=== PATIENT | female | born 1980 | race Caucasian/White ===

== ENCOUNTER 2019-09-20 02:09 | Observation (INO) | payer MEDICAID, SELFPAY ==
[2019-09-20 02:13] VITALS: BP 94/71; PULSE 82; RESP 18; TEMP 36.6; O2SAT 100; BMI 30.2
--- NOTE | 2019-09-20 02:17 | ECG_ITS ---
Measurements Intervals [place] Rate: 75 P: 51 VT: 146 QRS: 73 QRSD: 94 T: 59 QT: 386 QTc: 433 SINUS RHYTHM No previous ECG available for comparison Electronically Signed On 09-20-2019 20:56:22 CDT by Miley Latham M.D. [id number]
--- NOTE | 2019-09-20 02:26 | W.ED.PSYCH ---
HPI - Psych General: Chief Complaint: Psychiatric Symptoms Stated Complaint: SI Time Seen by Provider: 09/20/19 02:13 History of Present Illness: HPI Narrative: Lupe is a 39-year-old female who comes in with the complaint of having suicidal ideation. She states that the man that she is living with has recently left her. She has been mixing gabapentin and alcohol throughout the day. She denies any other ingestions. Currently she states she needs to get help and is here for that reason. Patient is otherwise poor historian secondary to her intoxication. Review of Systems General: Reports: ROS unobtainable due to medical condition PFSH ED PFSH: Social History Smoking and tobacco status: current every day smoker Current gender identity: Female Physical Exam Const: COMMON NORMALS: no acute distress, patient oriented x3, no limitations, healthy appearing and well nourished GENERAL APPEARANCE: cooperative, well kempt and well developed HENMT: COMMON NORMALS: normocephalic, atraumatic, hearing grossly normal bilaterally, external ears normal, EAC's normal, Normal external nose present and moist oral mucous membranes HEAD & SCALP: normocephalic and atraumatic NOSE: Normal external nose present and Normal nares present EXTERNAL EAR: Yes external ears normal EXTERNAL AUDITORY CANAL: EAC's normal MOUTH: Normal oral and palatal mucosa present, lip normal and tongue normal Eye: COMMON NORMALS: Equal, round and reactive pupils present, EOMs intact bilaterally, conjunctivae normal and no scleral icterus GENERAL EYE: appearance normal, both eyes and all related structures ALIGNMENT: Yes alignment normal PERIORBITAL: periorbital findings normal EYELID: eyelids normal CONJUNCTIVA: Yes conjunctivae normal SCLERA: sclerae normal PUPIL: Yes Equal, round and reactive pupils present Neck/C-Spine: COMMON NORMALS: full ROM, no lymphadenopathy, supple, no meningeal signs and no JVD GENERAL: Yes normal visual inspection and Yes trachea midline Chest: COMMONS NORMALS: normal inspection of the chest and normal palpation of entire chest wall Resp: COMMON NORMALS: normal respiratory effort, No retractions, No use of accessory muscles and clear to auscultation bilaterally EFFORT & INSPECTION: Yes able to speak in complete sentences and Yes symmetric chest movement AUSCULTATION: clear to auscultation bilaterally, no crackles, no rales, no rhonchi and no wheezes Cardio: COMMON NORMALS: no JVD, regular rate, regular rhythm, S1 normal heart sound present, S2 normal heart sound present, No gallops present (Cardio), No clicks present (Cardio), No murmurs present (Cardio) and No rub (Cardio) RATE: regular rate RHYTHM: regular rhythm HEART SOUNDS: S1 normal heart sound present and S2 normal heart sound present GI: COMMON NORMALS: Soft to palpation and No hepatosplenomegaly present PALPATION: Yes Soft to palpation, No Tenderness to palpation present (GI), No Guarding due to palpation present (GI), No Rigid due to palpation, Yes No hepatosplenomegaly present, No Hernia present, No Palpable mass present and No Pulsatile mass present : COMMON NORMALS: Yes no CVA tenderness BLADDER/KIDNEY EXAM: Yes no CVA tenderness EXTERNAL FEMALE EXAM: No Hernia present Back/Pelvis: COMMON NORMALS: no CVA tenderness, thoracic and lumbar spine normal to inspection, no thoracic nor lumbar tenderness and thoraco-lumbar ROM normal Extremity: COMMON NORMALS: normal to inspection, full ROM, capillary refill normal, no joint enlargement, no clubbing, cyanosis or edema and no calf tenderness Neuro: COMMON NORMALS: patient oriented x3, CN's II-XII intact bilaterally, moves all extremities, no focal motor deficits and no sensory deficits noted MENINGEAL SIGNS: Yes no meningeal signs SPEECH: speech normal Psych: COMMON NORMALS: mental status grossly normal, Normal thought process present and cooperative APPEARANCE: Yes well kempt ACTIVITY/MOTOR BEHAVIOR: Yes Avoids eye contact (attititude/behavior) MOOD & AFFECT: Yes tearful THOUGHT PROCESS: Normal thought process present Skin: COMMON NORMALS: no rashes or lesions noted, turgor normal, no jaundice, no petechiae and no mottling GENERAL SKIN EXAM: no rashes or lesions noted and turgor normal MDM - Psych MDM Narrative: Medical decision making narrative: The case was reviewed with poison control. They state that gabapentin is tolerated and very high doses and they have a peak effect and 2 hours. They recommend watching here at least 2 hours but if the patient is hemodynamically stable they feel that she could be safely transferred to our psychiatric unit. I reviewed the case with Dr. Magana who is in agreement to do so. He will accept the patient in transfer. At this time she is a voluntary admission. Lab Data: Labs: Lab Results 09/20/19 09/20/19 09/20/19 Range/Units 02:38 02:38 02:38 WBC 6.3 (4.0-10.0) 10^3/ uL RBC 3.90 L (4.1-5.3) 10^6/u L Hgb 12.7 (11.5-15.3) g/dL Hct 38.2 (37.0-47.0) % MCV 97.9 (81-99) fL MCH 32.6 (28.0-34.0) pg MCHC 33.2 (30.0-36.0) g/dL RDW 12.9 (12.1-15.1) % Plt Count 264 (130-400) 10^3/c mm MPV 11.4 H (7.4-10.4) fL Neut % (Auto) 50.5 % Lymph % (Auto) 40.4 % Beaver % (Auto) 4.9 % Eos % (Auto) 3.5 % Baso % (Auto) 0.5 % Neut # (Auto) 3.2 (1.8-7.7) 10^3/u L Lymph # (Auto) 2.5 (0.8-4.8) 10^3/u L Beaver # (Auto) 0.3 (0.2-0.9) 10^3/u L Eos # (Auto) 0.2 (0.0-0.8) 10^3/u L Baso # (Auto) 0.0 (0.0-0.1) 10^3/u L Nucleated RBC % (a uto) 0 % Nucleated RBCs # 0.0 /100WBC PT 12.30 (10.5-13.3) SECO NDS INR 0.89 (0.8-1.2) Sodium 139 (136-145) mmol/L Potassium 3.5 (3.5-5.1) mmol/L Chloride 100 (98-107) mmol/L Carbon Dioxide 28 (22-29) mmol/L Anion Gap 14.5 (5-19) BUN 8 (6-20) mg/dL Creatinine 0.5 (0.5-0.9) mg/dL GFR Calculation 138.8 H (90-130) mL/min Glucose 105 (65-115) mg/dL Calculated Osmolal ity 284 L (285-295) mOsm/k g Calcium 9.2 (8.5-10.5) mg/dL Magnesium 1.7 (1.7-2.3) mg/dL Total Bilirubin 0.2 (0.15-1.2) mg/dL AST 113 H (0-32) U/L ALT 89 H (0-33) U/L Alkaline Phosphata se 146 H (35-105) IU/L Creatine Kinase 95 (26-192) U/L Troponin T Baselin e (0-10) ng/mL Total Protein 6.3 L (6.6-8.7) g/dL Albumin 3.8 (3.5-5.2) g/dL Globulin 2.5 (1.3-4.6) g/dL TSH 0.73 (0.27-4.20) uIU/ mL HCG, Qual (Negative) Salicylates < 0.3 L (3-10) mg/dL Acetaminophen < 5.0 L (10-30) ug/mL Ethyl Alcohol 135 H (0-10) mg/dL 09/20/19 09/20/19 Range/Units 02:38 02:38 WBC (4.0-10.0) 10^3/ uL RBC (4.1-5.3) 10^6/u L Hgb (11.5-15.3) g/dL Hct (37.0-47.0) % MCV (81-99) fL MCH (28.0-34.0) pg MCHC (30.0-36.0) g/dL RDW (12.1-15.1) % Plt Count (130-400) 10^3/c mm MPV (7.4-10.4) fL Neut % (Auto) % Lymph % (Auto) % Beaver % (Auto) % Eos % (Auto) % Baso % (Auto) % Neut # (Auto) (1.8-7.7) 10^3/u L Lymph # (Auto) (0.8-4.8) 10^3/u L Beaver # (Auto) (0.2-0.9) 10^3/u L Eos # (Auto) (0.0-0.8) 10^3/u L Baso # (Auto) (0.0-0.1) 10^3/u L Nucleated RBC % (a uto) % Nucleated RBCs # /100WBC PT (10.5-13.3) SECO NDS INR (0.8-1.2) Sodium (136-145) mmol/L Potassium (3.5-5.1) mmol/L Chloride (98-107) mmol/L Carbon Dioxide (22-29) mmol/L Anion Gap (5-19) BUN (6-20) mg/dL Creatinine (0.5-0.9) mg/dL GFR Calculation (90-130) mL/min Glucose (65-115) mg/dL Calculated Osmolal ity (285-295) mOsm/k g Calcium (8.5-10.5) mg/dL Magnesium (1.7-2.3) mg/dL Total Bilirubin (0.15-1.2) mg/dL AST (0-32) U/L ALT (0-33) U/L Alkaline Phosphata se (35-105) IU/L Creatine Kinase (26-192) U/L Troponin T Baselin e 6 (0-10) ng/mL Total Protein (6.6-8.7) g/dL Albumin (3.5-5.2) g/dL Globulin (1.3-4.6) g/dL TSH (0.27-4.20) uIU/ mL HCG, Qual Negative (Negative) Salicylates (3-10) mg/dL Acetaminophen (10-30) ug/mL Ethyl Alcohol (0-10) mg/dL Imaging Data^: CXR: My impression: No acute cardiopulmonary findings. EKG Data^: EKG 1: Attestation: I personally reviewed and interpreted this EKG as follows: EKG interpretation date: 09/20/19 EKG interpretation time: 02:24 Interpretation: Normal sinus rhythm at 75 beats a minute, no acute ST-T wave changes. Discharge Plan Discharge Patient Disposition: Admitted As Inpatient Clinical Impression: Suicidal ideation Condition: Stable Referrals: Eusebia Kelsey APRN [Primary Care Provider] - Coding Level of Care Code ED Associate Director Of Biostatistics for g [facility]
--- NOTE | 2019-09-20 02:27 | XR_ITS ---
WS: [id number] XR chest 1V portable [id number] REASON FOR EXAM: CP FINDINGS: One view evaluation of the chest portable shows normal aerated lung bedoya no pneumonia, pl eural effusion, pulmonary edema, or pneumothorax. The heart and mediastinum are normal. There is partially calcified granulomas in both hilum. The hilum is and apices are normal. XR/XR chest 1V portable [id number] IMPRESSION: Negative chest for acute findings.
[2019-09-20 02:46] LABS: Basophils % 0.5 %; Eosinophils # 0.2 10^3/uL (0.0-0.8); Eosinophils % 3.5 %; Hematocrit 38.2 % (37.0-47.0); Hemoglobin 12.7 g/dL (11.5-15.3); Lymphocytes # 2.5 10^3/uL (0.8-4.8); Lymphocytes % 40.4 %; Mean Corpuscular HGB Conc 33.2 g/dL (30.0-36.0); Mean Corpuscular Hemoglobin 32.6 pg (28.0-34.0); Mean Corpuscular Volume 97.9 fL (81-99); Mean Platelet Volume 11.4 fL (7.4-10.4); Monocytes # 0.3 10^3/uL (0.2-0.9); Monocytes % 4.9 %; Neutrophils # 3.2 10^3/uL (1.8-7.7); Neutrophils % 50.5 %; Nucleated Red Blood Cells % 0 %; Platelet Count 264 10^3/cmm (130-400); Red Cell Distribution Width 12.9 % (12.1-15.1); White Blood Count 6.3 10^3/uL (4.0-10.0)
[2019-09-20 03:02] LABS: INR 0.89 (0.8-1.2)
[2019-09-20 03:06] LABS: HCG, Serum Qual Negative (Negative)
[2019-09-20 03:10] LABS: Troponin(5th) Baseline 6 ng/mL (0-10)
[2019-09-20 03:18] LABS: Alanine Aminotransferase 89 U/L (0-33); Albumin Level 3.8 g/dL (3.5-5.2); Alcohol Level 135 mg/dL (0-10); Alkaline Phosphatase 146 IU/L (35-105); Anion Gap 14.5 (5-19); Aspartate Amino Transferase 113 U/L (0-32); Blood Urea Nitrogen 8 mg/dL (6-20); Calcium 9.2 mg/dL (8.5-10.5); Carbon Dioxide 28 mmol/L (22-29); Chloride 100 mmol/L (98-107); Creatine Phosphokinase 95 U/L (26-192); Globulin 2.5 g/dL (1.3-4.6); Glomerular Filtration Rate 138.8 mL/min (90-130); Glucose 105 mg/dL (65-115); Magnesium 1.7 mg/dL (1.7-2.3); Osmolality Calculated 284 mOsm/kg (285-295); Potassium 3.5 mmol/L (3.5-5.1); Sodium 139 mmol/L (136-145); Thyroid Stimulating Hormone 0.73 uIU/mL (0.27-4.20); Total Bilirubin 0.2 mg/dL (0.15-1.2); Total Protein 6.3 g/dL (6.6-8.7)
[2019-09-20 03:19] LABS: Acetaminophen < 5.0 ug/mL (10-30); Salicylate < 0.3 mg/dL (3-10)
--- NOTE | 2019-09-20 03:23 | PC.NURSE ---
during pt rounding, pt states she has not eaten in four days, has a H/A, and is nauseated. Dr notified. Pt found asleep, in no apparent distress at next bed check
--- NOTE | 2019-09-20 04:17 | ECG_ITS ---
Measurements Intervals [place] Rate: 75 P: 51 GA: 146 QRS: 73 QRSD: 94 T: 59 QT: 386 QTc: 433 SINUS RHYTHM No previous ECG available for comparison Electronically Signed On 09-20-2019 21:01:04 CDT by Miley Latham M.D. [email or web address]
--- NOTE | 2019-09-20 04:27 | PC.NURSE ---
during blood draw and urine collection, pt states she is starving . Per ok for crackers and water until labs return. Pt asleep without any signs of distress when snacks delivered
[2019-09-20 04:28] LABS: Lithium 0.1 mmol/L (0.6-1.2); Phenytoin Dilantin 0.8 ug/mL (10-20); Valproic Acid Level 2.8 mcg/mL (50-100)
[2019-09-20 04:50] LABS: Bacteria Urine 1+; Bilirubin Urine Neg (NEGATIVE); Blood Urine Neg (Negative); Glucose Urine UA Norm (Normal); Ketones Urine Negative (Negative); Leukocyte Esterase Urine 2+ (Negative); Nitrate Urine Negative (Negative); Protein Urine Neg (Negative); RBC Urine 0-4 /hpf (0-2); Specific Gravity, Urine 1.005 (1.005-1.030); Urine Appearance Cloudy (CLEAR); Urine Color Yellow (Yellow); Urobilinogen Urine Norm (Negative); WBC Urine 0-4 /hpf (0-5); pH Urine 6 (5-7)
[2019-09-20 04:51] LABS: Amphetamines Screen Urine Negative (Negative); Barbiturates Screen Urine Positive (Negative); Benzodiazepines Screen Urine Positive (Negative); Cocaine Screen Urine Negative (Negative); Opiate Screen Urine Negative (Negative); PCP Screen Urine Negative (Negative); THC Screen Urine Negative (Negative)
[2019-09-20 05:05] LABS: Troponin 5 2HR Delta 0 ABS# (0-10)
[2019-09-20 05:44] VITALS: BP 99/61; PULSE 84; RESP 14; O2SAT 98
[2019-09-20 06:00] VITALS: BP 101/72; PULSE 81; RESP 17; TEMP 36.6; O2SAT 98
[2019-09-20 08:57] LABS: Troponin 5 6HR Delta 0 ng/L (0-12)
--- NOTE | 2019-09-20 10:56 | PC.RESP ---
SMOKING CESSATION INFORMATION SENT TO PATIENT.
[2019-09-20] MEDS: PARoxetine 20 mg Tablet 10 MG PO (11:46)
[2019-09-20 14:00] VITALS: BP 99/69; PULSE 85; RESP 18; TEMP 36.6; O2SAT 99
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
[2019-09-20] MEDS: propranolol 20 mg Tablet PO (15:16)
[2019-09-20] MEDS: gabapentin 400 mg Capsule PO (15:17)
[2019-09-20] MEDS: diazePAM 5 mg Tablet PO (15:17)
[2019-09-20 17:52] VITALS: BP 99/69; PULSE 85; RESP 18; TEMP 36.6; O2SAT 99
== END 2019-09-20 18:52 | disposition home or self-care (01) ==
LOC: ER 03:41 → NP 08:53
PROVIDERS: Admitting Provider Psychiatry & Neurology Psychiatry; Emergency Provider Emergency Medicine; PCP Nurse Practitioner Family; Visit Provider Psychiatry & Neurology Psychiatry
DX: R45.851 Suicidal ideations (principal); Z81.8 Family history of other mental and behavioral disorders
CPT/HCPCS: 12345; 36415; 71045; 80053; 80156; 80164; 80178; 80185; 80306; 80307; 81001; 82550; 83735; 84443; 84484; 84703; 85025; 85610; 93005; 99284; 99285; G0378